=== PATIENT | female | born 1990 | race Caucasian/White ===

== ENCOUNTER 2025-02-21 16:22 | Outpatient (CLI) | payer OTHER, SELFPAY | END 2025-02-21 16:23 | disposition home or self-care (01) | LOC: NFLDREF 02-24 21:38 | PROVIDERS: Visit Provider Registered Nurse | DX: Z31.49 Encounter for other procreative investigation and testing (principal) | CPT/HCPCS: 82670; 83001 ==

== ENCOUNTER 2025-02-28 09:01 | Outpatient (CLI) | payer OTHER, SELFPAY ==
--- NOTE | 2025-02-28 09:15 | CRLHL7_ITS ---
For Patients: As a result of the Century Cures Act, medical imaging exams and procedure reports are released immediately into your electronic medical record. You may view this report before your referring provider. If you have questions, please contact your health care provider. Indication: PROCREATIVE MANAGEMENT Technique: Hysterosalpingogram performed in routine fashion. Fluoroscopic time 26 seconds. IMPRESSION: Normal patency of the fallopian tubes with spillage of contrast into the peritoneal cavity. No endometrial canal filling defect. Normal exam. Dictated by Pieter Dubois MD @ 02/28/2025 12:14:38 PM (Electronically Signed)
--- NOTE | 2025-02-28 10:01 | PM.PROC ---
Procedure Note Time Seen by Provider: 09:30 Date Seen: 02/28/25 Date of procedure: 02/28/25 Will [facility] bill your pro fee for this procedure?: Yes Procedure: DATE: 02/28/2025 PREPROCEDURE DIAGNOSIS: Infertility POSTPROCEDURE DIAGNOSIS: 1. Infertility NAME OF PROCEDURE: Hysterosalpingogram. ANESTHESIA: None. COMPLICATIONS: None. PROCEDURE: After obtaining verbal consent, the patient was placed in the dorsal lithotomy position on the x-ray table. An open-sided bivalve speculum was introduced into the vagina and the cervix easily visualized. The cervix and vagina were then prepped with Betadine. Os binder/cervical dilator used: No. A balloon tipped double-lumen catheter was then gently inserted through the cervical opening into the uterine cavity to the level of the fundus. The balloon was insufflated with 3 mL of air. The speculum was removed. The patient was repositioned in the supine position, covered, and the radiologist was called to the room. A hysterosalpingogram was then performed. A total of 5 cc of Optiray 300 water soluble contrast dye was injected through the double-lumen catheter under moderate pressure. There was immediate fill of the uterine cavity to the cornua and immediate fill of both fallopian tubes and free spillage of dye on both sides The balloon was deflated. The catheter was removed. The patient tolerated the procedure well, though she did have moderate cramping discomfort during and just after the procedure and felt somewhat dizzy and nauseated but symptoms resolved quickly. She was discharged to home in stable condition and make an appointment with her physician to review all of her lab results and procedure results. Normal results of the hysterosalpingogram reviewed with the patient after the procedure was completed. Anesthesia: none
== END 2025-02-28 09:02 | disposition home or self-care (01) ==
LOC: RAD 09:01
PROVIDERS: Visit Provider Obstetrics & Gynecology
DX: N97.9 Female infertility, unspecified (principal); Z31.9 Encounter for procreative management, unspecified
CPT/HCPCS: 58340; 74740; A4649; Q9967

== ENCOUNTER 2025-03-11 16:35 | Outpatient (CLI) | payer OTHER, SELFPAY | END 2025-03-11 16:36 | disposition home or self-care (01) | LOC: NFLDREF 03-15 12:37 | PROVIDERS: Visit Provider Registered Nurse | DX: Z31.9 Encounter for procreative management, unspecified (principal) | CPT/HCPCS: 84144 ==

== ENCOUNTER 2025-10-22 16:42 | Outpatient (CLI) | payer OTHER, BC, SELFPAY ==
--- NOTE | 2025-10-22 16:45 | CRLHL7_ITS ---
For Patients: As a result of the Cures Act, medical imaging exams and procedure reports are released immediately into your electronic medical record. You may view this report before your referring provider. If you have questions, please contact your health care provider. OB ULTRASOUND FIRST TRIMESTER, TRANSVAGINAL INDICATION: Dating and viability. TECHNIQUE: Real time suero scale imaging of the fetus was performed. Transvaginal imaging performed. LMP: 08/18/2025. JESUS by LMP: 05/25/2026. GA: 9 w, 2 d. Previous US: No. CRL: 2.4 cm. 9 w 0 d. JESUS: 05/27/2026. FHR: 173 BPM. Gestational sac: 4.3 cm. Appears within normal limits. Yolk sac: 3.6 mm. Appears within normal limits. Right ovary: Within normal limits. 2.8 x 1.9 x 1.5 cm. Left ovary: Within normal limits. 4.5 x 2.1 x 2.0 cm. CL. IMPRESSION: Single living intrauterine measures 9 weeks 0 days with sonographic due date 05/27/2026. Pieter Dubois M.D. Diagnostic Radiologist [email or web address] SP/Dictated by: Pieter Dubois MD @ 10/22/2025 6:28:00 PM (Electronically Signed)
== END 2025-10-22 16:43 | disposition home or self-care (01) ==
LOC: US 16:45
PROVIDERS: Visit Provider Registered Nurse
DX: Z34.91 Encounter for supervision of normal pregnancy, unspecified, first trimester (principal); Z3A.09 9 weeks gestation of pregnancy
CPT/HCPCS: 76817

== ENCOUNTER 2025-10-22 17:36 | Outpatient (CLI) | payer BC, SELFPAY ==
[2025-10-22 21:40] LABS: Chlamydia DNA Amplified* NOT DETECTED (No Detected); GC DNA Amplified* NOT DETECTED (No Detected)
== END 2025-10-22 17:37 | disposition home or self-care (01) ==
PROVIDERS: Visit Provider Registered Nurse
DX: Z34.91 Encounter for supervision of normal pregnancy, unspecified, first trimester (principal); Z01.31 Encounter for examination of blood pressure with abnormal findings
CPT/HCPCS: 82565; 82570; 83020; 83021; 84156; 84450; 84460; 84520; 85660; 86592; 86703; 86704; 86706; 86762; 86787; 86803; 86850; 86900; 86901; 87086; 87340; 87491; 87591

== ENCOUNTER 2025-10-28 08:00 | Outpatient (CLI) | payer BC, SELFPAY | END 2025-10-28 08:01 | disposition home or self-care (01) | LOC: NFLDREF 11-01 06:10 | PROVIDERS: Visit Provider Registered Nurse | DX: Z34.91 Encounter for supervision of normal pregnancy, unspecified, first trimester (principal); Z01.31 Encounter for examination of blood pressure with abnormal findings | CPT/HCPCS: 82570; 84156 ==